=== PATIENT | female | born 1965 | race African-American/Black ===

== ENCOUNTER 2017-06-21 08:11 | Emergency (ER) | payer SELFPAY ==
[~2017-06-21] VITALS: Ht 165.1 cm; Wt 100.0 kg
[2017-06-21 08:18] VITALS: BP 144/92; PULSE 61; RESP 20; TEMP 98.6; O2SAT 100
[2017-06-21] MEDS ORDERED: HYDR25TA5 PO (10:10)
[2017-06-21] MEDS ORDERED: LISI10TA3 PO (10:10)
[2017-06-21] MEDS ORDERED: ORPHENADRINE INJ 60 MG/2 ML AMP IM ONE (10:15)
[2017-06-21] MEDS ORDERED: MORPHINE SULFATE 8 MG/ML INJ IM ONE (10:15)
--- NOTE | 2017-06-21 10:17 | PD ---
HPI Chief Complaint: Pain: Acute or Chronic Time Seen by Provider: 09:57 Travel History International Travel<30 days: No Contact w/Intl Traveler<30days: No Traveled to known affect area: No History of Present Illness HPI Patient is a 52-year-old female presents emergency department for evaluation of right shoulder pain. Patient states that she was lifted a heavy object a couple of days ago and since then she has had somewhat progressive and severe right shoulder pain radiating down her right arm. She states it feels swollen in her shoulder and wonders about having a cortisone shot. Denies any direct trauma to her neck or back or shoulder. Patient states she has had some similar happened to her left shoulder for and thinks that her rotator cuff. Pain is severe, right shoulder, radiation as above, context as above, not associated with any nausea vomiting weakness. PFSH Past Medical History Cerebrovascular Accident: Yes Diminished Hearing: No Hypertension: Yes Tetanus Vaccination: Unknown Influenza Vaccination: No ?: Not Menopausal: Yes Past Surgical History Gynecologic Surgery: Yes (PARTIAL HYSTERECTOMY ) Hysterectomy: Yes Other Surgery: Yes (LAPAROSCOPY, MYOMECTOMY , CYSTECTOMY ) Social History Alcohol Use: No Tobacco Use: No Substance Use: No Allergies-Medications (Allergen,Severity, Reaction): Coded Allergies: erythromycin base (Verified Allergy, Unknown, vomiting , 06/21/17) Reported Meds & Prescriptions Reported Meds & Active Scripts Active [place] (Hydrocodone-Acetaminophen) 10-325 Mg Tab 1 Tab PO Q6H PRN Prednisone 20 Mg Tab 60 Mg PO DAILY 5 Days Reported Hydrochlorothiazide 25 Mg Tab 25 Mg PO DAILY Lisinopril 10 Mg Tab 10 Mg PO DAILY Review of Systems Except as stated in HPI: all other systems reviewed are Neg Physical Exam Narrative GENERAL: Well-developed, morbidly obese female in no obvious distress. Somewhat somnolent SKIN: Focused skin assessment warm/dry. HEAD: Atraumatic. Normocephalic. EYES: Pupils equal and round. No scleral icterus. No injection or drainage. ENT: No nasal bleeding or discharge. Mucous membranes pink and moist. NECK: Trachea midline. No JVD. CARDIOVASCULAR: Regular rate and rhythm. No murmur appreciated. RESPIRATORY: No accessory muscle use. Clear to auscultation. Breath sounds equal bilaterally. GASTROINTESTINAL: Abdomen soft, non-tender, nondistended. Hepatic and splenic margins not palpable. MUSCULOSKELETAL: No obvious deformities. There is a fair amount of tenderness to the anterior glenohumeral joint. She has significant tenderness with passive range of motion of the right shoulder, I do not appreciate much of the way of bony tenderness. I do not see any swelling. There is no midline cervical spine tenderness, there does not seem to be much in the way of posterior or scapular tenderness either. She has 5 out of 5 strength in mussel opener in bilateral upper extremities, the elbow motion is limited by pain at the shoulder but is intact. On reassessment after medication the patient is able to be passively range of motion to at least 90 of abduction, she has full range of motion of the elbow. NEUROLOGICAL: Awake and alert. No obvious cranial nerve deficits. Motor grossly within normal limits. Normal speech. PSYCHIATRIC: Appropriate mood and affect; insight and judgment normal. Data Data Last Documented VS Vital Signs Date Time Temp Pulse Resp B/P (MAP) Pulse Ox O2 Delivery O2 Flow Rate FiO2 06/21/17 11:44 57 16 158/70 (99) 95 06/21/17 08:18 98.6 Orders Orders Electrocardiogram (06/21/17 ) Shoulder, Limited(2vws) (06/21/17 ) Ct Cerv Spine W/O Contrast (06/21/17 ) Morphine Inj (Morphine Inj) (06/21/17 10:15) Orphenadrine Inj (Norflex Inj) (06/21/17 10:15) Sling Cradle Arm (06/21/17 ) Ed Discharge Order (06/21/17 11:23) Sling Cradle Arm (06/21/17 ) MDM Medical Decision Making Medical Screen Exam Complete: Yes Emergency Medical Condition: Yes Differential Diagnosis Frozen shoulder syndrome, shoulder strain, shoulder sprain, shoulder fracture unlikely, radiculopathy, degenerative disc disease per Narrative Course Patient room to the emergency department, discussed her imaging findings with her that she does have an osteophyte in the cervical spine with some impingement on nerve roots. There is also significant calcific tendinitis of the right shoulder but no bony abnormality. Her symptoms are much more in line with a frozen shoulder syndrome then any significant cervical stenosis. Neurologically she was reexamined and is otherwise intact. She is not worsened when she turns her head to the right the left in her cervical spine does seem to be stable. I discussed all the results with her and recommended following up with an orthopedic surgeon as well as with a neurosurgeon. She verbalized understanding agreement. Discussed range of motion exercises, empiric steroids , albeit quite pain medicine and follow-up with a primary care physician as well. Discussed returning to criteria. She was provided a sling for comfort only and I recommended that she be out of it as much as possible and only use it sparingly Diagnosis Primary Impression: Frozen shoulder syndrome Qualified Codes: M75.01 - Adhesive capsulitis of right shoulder Additional Impression: Cervical spinal stenosis Referrals: Dionte Kelly MD, Brittney Lewis MD Patient Instructions: Active Range of Motion Exercises (GEN), General Instructions, Passive Range of Motion Exercises (GEN) Additional Instructions: Use your sling only MINIMALLY for comfort. You need to move your shoulder as much as possible or it will get worse. Med/Other Pt SpecificInfo: Prescription(s) given Scripts Hydrocodone-Acetaminophen ([place]) 10-325 Mg Tab 1 TAB PO Q6H Y for PAIN, #20 TAB 0 Refills Prov: Jose Alberto Judge MD 06/21/17 Prednisone (Prednisone) 20 Mg Tab 60 MG PO DAILY for 5 Days, #15 TAB 0 Refills Prov: Jose Alberto Judge MD 06/21/17 Disposition: 01 DISCHARGE HOME Condition: Stable Jose Alberto Jduge MD Jun 21, 2017 10:17
--- NOTE | 2017-06-21 10:43 | RADRPT ---
EXAM DATE/TIME: 06/21/2017 10:28 [facility] COMPARISON: No previous studies available for comparison. INDICATIONS : Right shoulder pain. No known injuries. MEDICAL HISTORY : None. SURGICAL HISTORY : None. ENCOUNTER: Initial ACUITY: 1 day PAIN SCORE: 10/10 LOCATION: Right shoulder. FINDINGS: Two view examination of the right shoulder demonstrates no evidence of fracture or dislocation. The glenohumeral and acromioclavicular joints are maintained. Bony mineralization is normal. There are m ultiple small calcifications along the lateral head. CONCLUSION: Multiple small calcifications along the lateral right humeral head which could indica te calcific tendinitis. Honorio Larsen MD on June 21, 2017 at 10:40 Board Certified Radiologist. This report was verified electronically.
--- NOTE | 2017-06-21 11:06 | RADRPT ---
EXAM DATE/TIME: 06/21/2017 10:44 [facility] COMPARISON: No previous studies available for comparison. INDICATIONS : Right arm pain after picking up heavy luggage. RADIATION DOSE: 22.25 CTDIvol (mGy) MEDICAL HISTORY : Hypertension. Cerebrovascular disease. SURGICAL HISTORY : None. ENCOUNTER: Initial ACUITY: 1 day PAIN SCALE: 6/10 LOCATION: Right arm TECHNIQUE: Volumetric scanning of the cervical spine was performed. Multiplanar reconstructions in the sagittal, coronal and oblique axial planes were performed. Using automated exposure control and adjustment o f the mA and/or kV according to patient size, radiation dose was kept as low as reasonably achievable to obtain optimal diagnostic quality images. DICOM format image data is available electronically f or review and comparison. FINDINGS: VERTEBRAE: Normal vertebral body height. Mild degenerative changes present at C4-5 and C5-6 levels with mild dis c space narrowing and spurring. ALIGNMENT: No evidence of subluxation. C2-C3: The bony spinal canal is normal in size. No evidence of disc bulge or herniation. The neural forami na are bilaterally patent. C3-C4: The bony spinal canal is normal in size. No evidence of disc bulge or herniation. The neural forami na are bilaterally patent. C4-C5: There is mild disc osteophyte complex with mass effect on the anterior thecal sac. There is moderate to severe narrowing of left neural foramina. The right is patent. C5-C6: The bony spinal canal is normal in size. No evidence of disc bulge or herniation. The neural forami na are bilaterally patent. C6-C7: The bony spinal canal is normal in size. No evidence of disc bulge or herniation. The neural forami na are bilaterally patent. C7-T1: The bony spinal canal is normal in size. No evidence of disc bulge or herniation. The neural forami na are bilaterally patent. CONCLUSION: 1. Mild degenerative disc change at C4-5 with posterior disc osteophyte complex with mass effect on t he anterior thecal sac. 2. Moderate to severe narrowing of the left neural foramina at the C4-5 level. 3. Mild degenerative change at C5-6 with no disc protrusion. Honorio Larsen MD on June 21, 2017 at 10:57 Board Certified Radiologist. This report was verified electronically.
[2017-06-21] MEDS ORDERED: PRED20 PO (11:21)
[2017-06-21] MEDS ORDERED: HYDR-3366 PO (11:21)
[2017-06-21 11:44] VITALS: BP 158/70
--- NOTE | 2017-06-22 00:07 | EKG ---
Date Performed: 06/21/2017 Time Performed: 08:42:01 PTAGE: 52 years EKG: SINUS BRADYCARDIA MODERATE T-WAVE ABNORMALITY, CONSIDER ANTERIOR ISCHEMIA ABNORMAL ECG NO PREVIOUS TRACING DOCTOR: Vitaly Allen Interpretating Date/Time 06/22/2017 00:01:18
== END 2017-06-21 11:45 | disposition home or self-care (01) ==
LOC: NEPD 08:11
DX: M75.01 Adhesive capsulitis of right shoulder (principal); M48.02 Spinal stenosis, cervical region; M25.78 Osteophyte, vertebrae; I10 Essential (primary) hypertension
CPT/HCPCS: 72125; 73030; 93005; 96372; 99285; J2270; J2360